=== PATIENT | female | born 1970 | race Caucasian/White ===

== ENCOUNTER 2016-06-10 14:02 | Emergency (ER) | payer SELFPAY ==
[~2016-06-10] VITALS: Ht 165.1 cm; Wt 77.1 kg
--- NOTE | 2016-06-10 15:30 | EKG ---
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
--- NOTE | 2016-06-10 15:41 | PHYS DOC ---
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 Her pain is constant, achy, worse with range of motion of her left upper extremity or use of her left pectoralis muscle. She states she exerted herself moving her tanning bed the night prior to symptom onset. She does not recall an injury at that time. She states she was seen at [facility] emergency Department yesterday and had blood work, chest x-ray, EKG and did not stay for her results because they were not treating her pain. She has taken no [id number] medications for her symptoms. She denies dyspnea, diaphoresis, palpitations, lightheadedness, cough , hemoptysis, leg pain or swelling, exertional symptoms, fever or chills, nausea or vomiting. Review of Systems Review of Systems Constitutional: Denies fever or chills [] Eyes: Denies change in visual acuity, redness, or eye pain [] HENT: Denies nasal congestion or sore throat [] Respiratory: Denies cough or shortness of breath [] Cardiovascular: No additional information not addressed in HPI [] GI: Denies abdominal pain, nausea, vomiting, bloody stools or diarrhea [] : Denies dysuria or hematuria [] Musculoskeletal: Denies back pain or joint pain [] Integument: Denies rash or skin lesions [] Neurologic: Denies headache, focal weakness or sensory changes [] Endocrine: Denies polyuria or polydipsia [] Current Medications Current Medications Current Medications Medications (Trade) Dose Ordered Sig/Serafin Start Time Stop Time Status Last Admin Dose Admin Ketorolac Tromethamine (Toradol Im) 15 mg 1X ONCE 06/10/16 15:45 06/10/16 15:53 DC 06/10/16 16:07 15 MG Allergies Allergies Allergies Coded Allergies Type Severity Reaction Last Updated Verified No Known Drug Allergies 06/10/16 No Physical Exam Physical Exam Constitutional: Well developed, well nourished, no acute distress, non-toxic appearance. [] HENT: Normocephalic, atraumatic, bilateral external ears normal, oropharynx moist, nose normal. [] Eyes: PERRLA, EOMI. [] Neck: Normal range of motion, supple. [] Cardiovascular:Heart rate regular rhythm [] Lungs & Thorax: Bilateral breath sounds clear to auscultation. Left pectoralis and lateral chest wall tenderness with no visual or palpable abnormality [] Abdomen: Bowel sounds normal, soft, no tenderness, no masses, no pulsatile masses. [] Skin: Warm, dry, no erythema, no rash. [] Back: No tenderness, no CVA tenderness. [] Extremities: ROM intact, no edema, equal radial pulses. [] Neurologic: Alert and oriented X 3, normal motor function, normal sensory function, no focal deficits noted. [] Psychologic: Affect normal, judgement normal, mood normal. [] Current Patient Data Vital Signs Vital Signs Date Time Temp Pulse Resp B/P Pulse Ox O2 Delivery O2 Flow Rate FiO2 06/10/16 16:08 87 16 116/77 95 Room Air 06/10/16 15:05 98.7 98.7 EKG EKG EKG as interpreted by me as normal sinus rhythm, rate 89, no ST-T changes, normal intervals, no ectopy Course & Med Decision Making Course & Med Decision Making Pertinent Labs and Imaging studies reviewed. (See chart for details) Symptoms consistent with musculoskeletal delayed onset muscle soreness after physical activity. Encouraged lney-rjo-leyuauf medication therapy including ibuprofen and discussed symptomatic care of musculoskeletal pain. Return precautions given. She understands and agrees with plan. Dragon Disclaimer Dragon Disclaimer This electronic medical record was generated, in whole or in part, using a voice recognition dictation system. Departure Departure Impression: Primary Impression: Acute chest wall pain Disposition: 01 HOME, SELF-CARE Condition: STABLE Referrals: CHAZ RENTERAI MD (PCP) Patient Instructions: Musculoskeletal Pain Additional Instructions: Take Tylenol or ibuprofen as needed for pain. Follow-up with your primary care doctor. Return for any concerns. Aidee CHANCE MD Jun 10, 2016 15:41
[2016-06-10] MEDS ORDERED: KETOROLAC TROMETHAMINE 60 MG/2 ML SYRINGE. IM ONE (15:45)
[2016-06-10] MEDS ORDERED: LISI-338 PO (15:50)
[2016-06-10] MEDS ORDERED: CETI10TA16 PO (15:50)
[2016-06-10 16:08] VITALS: BP 116/77
== END 2016-06-10 16:10 | disposition home or self-care (01) ==
LOC: ER 14:02
DX: R07.89 Other chest pain (principal); J45.909 Unspecified asthma, uncomplicated; I10 Essential (primary) hypertension; F17.210 Nicotine dependence, cigarettes, uncomplicated
CPT/HCPCS: 93005; 96372; 99283; J1885